=== PATIENT | female | born 2000 | race Caucasian/White ===

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

== ENCOUNTER 2021-01-02 15:46 | Outpatient (REF) | payer BC, SELFPAY ==
--- NOTE | ~2021-01-02 | US_ITS ---
EXAMINATION: US PELVIS COMPLETE US PELVIS ENDOVAGINAL CLINICAL INFORMATION: Pain and irregular menses COMPARISON: None. TECHNIQUE: Transabdominal and transvaginal images of the pelvis were obtained. FINDINGS: UTERUS: Anteverted, anteflexed. Normal size and contour, measuring 8.1 x 2.8 x 4.5 cm (cervix to fundus x AP x transverse). Uniform, homogeneous endometrium measures 0.7 cm in width. RIGHT OVARY: Normal size and echogenicity measuring 3.7 x 2.7 x 3.0 cm. 16 cc volume. There is a 2.1 x 2.0 x 2.3 cm heterogeneous echogenic structure in the right ovary which may represent a hemorrhagic corpus luteum cyst. LEFT OVARY: Normal size and echogenicity measuring 3.6 x 1.8 x 2.4 cm. 8.1 cc volume. There is a 2.4 x 1.4 x 2.0 cm hemorrhagic cyst with peripheral echoes consistent with retractile clot. FREE FLUID: Small volume of pelvic free fluid in the pelvic cul-de-sac and adjacent the left adnexa. US/US pelvic complete IMPRESSION: Normal appearance of the uterus. Normal endometrial thickness, 7 mm. There is a likely hemorrhagic cyst in the left ovary with retractile clot. A heterogeneous echogenic structure in the right ovary is suggestive of a hemorrhagic corpus luteum cyst.
--- NOTE | ~2021-01-02 | US_ITS ---
EXAMINATION: US PELVIS COMPLETE US PELVIS ENDOVAGINAL CLINICAL INFORMATION: Pain and irregular menses COMPARISON: None. TECHNIQUE: Transabdominal and transvaginal images of the pelvis were obtained. FINDINGS: UTERUS: Anteverted, anteflexed. Normal size and contour, measuring 8.1 x 2.8 x 4.5 cm (cervix to fundus x AP x transverse). Uniform, homogeneous endometrium measures 0.7 cm in width. RIGHT OVARY: Normal size and echogenicity measuring 3.7 x 2.7 x 3.0 cm. 16 cc volume. There is a 2.1 x 2.0 x 2.3 cm heterogeneous echogenic structure in the right ovary which may represent a hemorrhagic corpus luteum cyst. LEFT OVARY: Normal size and echogenicity measuring 3.6 x 1.8 x 2.4 cm. 8.1 cc volume. There is a 2.4 x 1.4 x 2.0 cm hemorrhagic cyst with peripheral echoes consistent with retractile clot. FREE FLUID: Small volume of pelvic free fluid in the pelvic cul-de-sac and adjacent the left adnexa. US/US transvaginal IMPRESSION: Normal appearance of the uterus. Normal endometrial thickness, 7 mm. There is a likely hemorrhagic cyst in the left ovary with retractile clot. A heterogeneous echogenic structure in the right ovary is suggestive of a hemorrhagic corpus luteum cyst.
== END 2021-01-02 15:47 | disposition home or self-care (01) ==
LOC: HO.US 15:46
PROVIDERS: Visit Provider Advanced Practice Midwife
DX: R10.2 Pelvic and perineal pain (principal)
CPT/HCPCS: 76830; 76856

== ENCOUNTER → 2021-01-16 10:58 | Outpatient (BNVA) | payer BC, SELFPAY | PROVIDERS: Visit Provider Advanced Practice Midwife ==

== ENCOUNTER 2021-04-28 09:20 | Outpatient (REF) | payer OTHER, SELFPAY ==
[2021-04-28 17:22] LABS: CT PCR NOT DETECTED (Not Detect.); NG PCR NOT DETECTED (Not Detect.)
== END 2021-04-28 09:21 | disposition home or self-care (01) ==
LOC: HO.LAB 09:20
PROVIDERS: PCP Internal Medicine; Visit Provider Advanced Practice Midwife
DX: Z01.419 Encounter for gynecological examination (general) (routine) without abnormal findings (principal); Z11.3 Encounter for screening for infections with a predominantly sexual mode of transmission; Z20.2 Contact with and (suspected) exposure to infections with a predominantly sexual mode of transmission
CPT/HCPCS: 87491; 87591